=== PATIENT | male | born 1995 | race Caucasian/White ===

== ENCOUNTER 2017-01-17 20:19 | Emergency (ER) | payer OTHER ==
[2017-01-17 20:34] VITALS: BP 137/84; PULSE 125; RESP 16; TEMP 98.6; O2SAT 92
[2017-01-17] MEDS ORDERED: IBUPROFEN 600 MG TAB PO ONE (20:42)
--- NOTE | 2017-01-17 21:37 | EDPHY ---
H & P Stated Complaint: R ankle injury wrestling - Personal History Current Tetanus/Diphtheria Vaccine: Unsure - Medical/Surgical History Hx Asthma: No Hx Chronic Respiratory Disease: No Hx Diabetes: No Hx Cardiac Disease: No Hx Renal Disease: No Hx Cirrhosis: No Hx Alcoholism: No Hx HIV/AIDS: No Hx Splenectomy or Spleen Trauma: No Other PMH: Adderall for ADHD, Umbilical hernia Repair, Deviated Septum. - Social History Smoking Status: Never smoked Time Seen by Provider: 01/17/17 21:00 HPI/ROS: Chief complaint: Ankle injury History of present illness: This is a 21-year-old male who presents to the emergency department for evaluation of an ankle injury. Patient was horsing around with friends when he rolled his ankle. Since then he has had pain and swelling to the outer aspect of the ankle. It makes it difficult to ambulate. No report of open wounds. No report of abnormal coolness or paresthesias. No other trauma reported. (uLi Jean) - Physical Exam Exam: General appearance: alert no distress Musculoskeletal: There is edema and tenderness to the lateral malleolus. The rest the ankle is unremarkable including over the Achilles. The foot, lower leg and knee are nontender. He is moving the digits of the foot and the knee well. Neurologic exam: The patient has normal sensation and motor function distal to the injury. Vascular exam: Normal pulses and capillary refill in the foot (Lui Jean) Constitutional: Initial Vital Signs Temperature (C) 37 C 01/17/17 20:31 Heart Rate 125 H 01/17/17 20:31 Respiratory Rate 16 01/17/17 20:31 Blood Pressure 137/84 H 01/17/17 20:31 O2 Sat (%) 92 01/17/17 20:31 O2 Delivery Mode Room Air Allergies/Adverse Reactions: No Known Allergies Allergy (Unverified 01/17/17 20:34) Home Medications: Medication Instructions Recorded Adderall 10 MG (*) 01/17/17 Medical Decision Making - Diagnostics Imaging: X-ray series of the right ankle consistent with a sprain (Lui Jean) Procedures: Patient is placed in Meño wrap and Velcro stirrup splint. He is given crutches. (Lui Jean) ED Course/Re-evaluation: The patient was evaluated and managed by the physician's nursing home assistant. My cosignature indicates that I reviewed the chart and I agree with the findings and plan of care as documented. I am the secondary supervising physician. ( Jessenia Castanon) Patient seen under the supervision of my secondary supervising physician Dr. Jessenia Castanon. Patient presents to the emergency department for ankle injury. The foot is neurovascularly intact. X-rays negative for fracture. Placed in an Meño wrap and stirrup splint. Given crutches. Home care is discussed. Return precautions are given. (Lui Jean) - Data Points Medications Given: Discontinued Medications Ibuprofen (Motrin) 600 mg PO EDNOW ONE Stop: 01/17/17 20:43 Last Admin: 01/17/17 20:45 Dose: 600 mg Departure - Departure Disposition: Home, Routine, Self-Care Clinical Impression: Ankle sprain Qualifiers: Encounter type: initial encounter Involved ligament of ankle: unspecified ligament Laterality: right Qualified Code(s): S93.401A - Sprain of unspecified ligament of right ankle, initial encounter Condition: Good Instructions: Ankle Sprain (ED) Additional Instructions: Follow up with Brian Heard an orthopedic doctor for recheck Ice the injury, 20 minutes on, 3 times daily for the next 3 days Use ibuprofen 600 mg 3 times a day for the next 2-3 days for pain and swelling If symptoms worsen or new symptoms develop return to the emergency department for recheck Referrals: [facility] [Other] - As per Instructions [facility] [Clinic] - As per Instructions Miguel Angel Ruggiero MD [Medical Doctor] - As per Instructions
== END 2017-01-17 21:45 | disposition home or self-care (01) ==
DX: S93.401A Sprain of unspecified ligament of right ankle, initial encounter (principal); X58.XXXA Exposure to other specified factors, initial encounter; Y99.8 Other external cause status; Y93.72 Activity, wrestling